=== PATIENT | male | born 1975 | race Caucasian/White ===

== ENCOUNTER → 2025-07-05 | Outpatient (CLI) | payer MEDICAID, SELFPAY ==
[2025-07-05 19:57] LABS: Anion Gap 12 (5-15); BUN 14 mg/dL (4-19); BUN/Creat Ratio 14.3 RATIO (10-20); Calcium,Total 9.6 mg/dL (7.6-11.0); Carbon Dioxide 24.9 mmol/L (21.0-32.0); Chloride 99 mmol/L (98-108); Glucose 108 mg/dL (70-99); PSA,Total - Annual Screen 0.81 ng/mL (0.02-4.00); Potassium 4.0 mmol/L (3.3-5.1)
== END | disposition home or self-care (01) ==
LOC: LAB 19:12
PROVIDERS: PCP Family Medicine; Visit Provider Family Medicine
DX: Z13.1 Encounter for screening for diabetes mellitus (principal); N40.0 Benign prostatic hyperplasia without lower urinary tract symptoms
CPT/HCPCS: 36415; 80048; 84153; G0103